=== PATIENT | female | born 1995 | race Two or more races ===

== ENCOUNTER 2023-11-28 19:44 | Emergency (ER) | payer SELFPAY ==
[~2023-11-28] VITALS: Ht 175.3 cm; Wt 68.9 kg
[2023-11-28 20:00] VITALS: BP 121/40; PULSE 117; RESP 16; TEMP 98.5; O2SAT 95
[2023-11-28 21:09] LABS: Urine Bacteria None Seen /hpf (None Seen)
[2023-11-28 21:16] LABS: Urine Blood Negative /uL (Negative); Urine Clarity Turbid (Clear); Urine Color Yellow (Yellow); Urine Mucus FEW (None Seen); Urine Protein, UAD 1+ (Negative); Urine Specific Gravity 1.026 (1.001-1.035); Urine Urobilinogen 3 mg/dL (Negative); Urine WBC 5 /hpf (0 - 5)
[2023-11-28 21:32] LABS: Basophils # (auto) 0 10 ^3/uL (0-0.2); Eosinophils # (auto) 0 10 ^3/uL (0-0.8); Eosinophils % (auto) 0.1 % (0.0-7.0); Monocytes # (auto) 1.2 10 ^3/uL (0-1.3); Nucleated Red Blood Cells % 0.1 %; Red Cell Distribution Width 12.2 % (11.8-14.3)
[2023-11-28 21:34] LABS: Basophils % (auto) 0.3 % (0.0-2.0); Hematocrit 36.2 % (36.0-46.0); Hemoglobin 12.3 g/dL (12.2-16.2); Lymphocytes # (auto) 2.1 10 ^3/uL (0.4-5.4); Mean Corpuscular Hemoglobin 29.4 pg (28.0-32.0); Mean Corpuscular Hgb Conc. 33.9 g/dL (32.0-36.0); Mean Corpuscular Volume 86.8 fL (80.0-100.0); Neutrophils # (auto) 9.7 10 ^3/uL (1.6-8.6); Neutrophils % (auto) 74.6 % (37.0-80.0); Red Blood Cells 4.18 10^6/uL (4.0-5.20); White Blood Cell 13.1 10^3/uL (4.4-10.8)
[2023-11-28 21:47] LABS: Alanine Aminotransferase 56 U/L (7-40); Albumin 4.8 g/dL (3.2-4.8); Alkaline Phosphatase 80 U/L (46-116); Anion Gap 6 (5-15); Aspartate Aminotransferase 48 U/L (13-40); BUN/Creatinine Ratio 13.8 (10.0-20.0); Blood Urea Nitrogen 12 mg/dL (9-23); Calcium 9.5 mg/dL (8.5-10.1); Carbon Dioxide 28 mmol/L (20-30); Chloride 101 mmol/L (98-107); Glucose 116 mg/dL (74-106); Potassium 2.8 mmol/L (3.5-5.1); Sodium 135 mmol/L (136-145)
[2023-11-28 21:48] LABS: Bilirubin, Total 0.7 mg/dL (0.2-1.0); Total Protein 7.8 g/dL (5.7-8.2)
[2023-11-28 23:02] LABS: Amphetamine Screen, Urine Pos (NEGATIVE); Barbiturate Scree,Urine Neg (NEGATIVE)
[2023-11-28 23:03] LABS: Benzodiazephine Screen, Urine Neg (NEGATIVE); Cannabinoid Screen, Urine Pos (NEGATIVE); Cocaine Screen, Urine Neg (NEGATIVE); Opiate Scree,Urine Neg (NEGATIVE); Phencyclidine Screen, Urine Neg (NEGATIVE)
== END 2023-11-28 23:17 | disposition home or self-care (01) ==
LOC: ER 19:44
DX: F15.10 Other stimulant abuse, uncomplicated (principal); R41.82 Altered mental status, unspecified; R07.89 Other chest pain
CPT/HCPCS: 36415; 71045; 80053; 80307; 81001; 85025